=== PATIENT | female | born 1975 | race Caucasian/White ===

== ENCOUNTER 2018-03-24 13:49 | Emergency (ER) | payer SELFPAY ==
[2018-03-24] MEDS ORDERED: NACL 0.9% 1000 ML 1,000 ML ONE (13:56)
[2018-03-24] MEDS ORDERED: ZOFRAN IV ONE ×2 (14:08→16:12)
[2018-03-24] MEDS ORDERED: NACL 0.9% 1000 ML 1,000 ML IV ONE ×3 (14:08→17:08)
[2018-03-24] MEDS ORDERED: ZOFRAN ONE (14:09)
--- NOTE | 2018-03-24 14:37 | Emergency Department Report ---
HPI - General Chief Complaint: Syncope Time Seen by Provider: 03/24/18 14:05 - HPI HPI: 42-year-old [place] female presents to the emergency department with complaint of passing out just after donating blood/plasma. She remembers being at the donation clinic and someone was driving her to go see her son and then she remembers coming to at the emergency department. She presents with some borderline low blood pressure. She has a past medical history of asthma and anxiety. She denies any headache, vision change, slurred speech, chest pain or fever. Currently she says she is feeling much better. ED Past Medical Hx - Past Medical History Hx Asthma: Yes Additional medical history: anxiety - Surgical History Past Surgical History?: No - Social History Smoking Status: Never Smoker Substance Use Type: None - Medications Home Medications: Home Medications Medication Instructions Recorded Confirmed Last Taken Type ALBUTEROL Inhaler (OR & NICU) 03/24/18 Unknown History [ProAir HFA Inhaler] Depo-Medrol 03/24/18 Unknown History ED Review of Systems ROS: Stated complaint: SNYCOPE Other details as noted in HPI Comment: All other systems reviewed and negative Constitutional: denies: chills, fever Eyes: denies: eye pain, eye discharge, vision change ENT: denies: ear pain, throat pain Respiratory: denies: cough, shortness of breath, wheezing Cardiovascular: syncope. denies: chest pain Gastrointestinal: denies: abdominal pain, nausea, diarrhea Genitourinary: denies: urgency, dysuria, discharge Musculoskeletal: denies: back pain, joint swelling, arthralgia Skin: denies: rash, lesions Neurological: denies: headache, weakness, paresthesias Physical Exam - Physical Exam Vital Signs: Vital Signs 03/24/18 03/24/18 13:56 14:02 Temperature 97.8 F Pulse Rate 75 Respiratory 20 16 Rate Blood Pressure 90/67 O2 Sat by Pulse 96 97 Oximetry Physical Exam: GENERAL: The patient is well-developed well-nourished. HENT: Normocephalic. Atraumatic. Patient has moist mucous membranes. EYES: Extraocular motions are intact. Pupils equal reactive to light bilaterally. NECK: Supple. Trachea is midline. CHEST/LUNGS: Clear to auscultation. There is no respiratory distress noted. HEART/CARDIOVASCULAR: Regular. There is no tachycardia. There is no murmur. ABDOMEN: Abdomen is soft, nontender. Patient has normal bowel sounds. There is no abdominal distention. SKIN: Skin is warm and dry. NEURO: The patient is awake, alert, and oriented. The patient is cooperative. The patient has no focal neurologic deficits. The patient has normal speech and gait. Cranial last 2 through 12 grossly intact. No pronator drift. No dysmetria. MUSCULOSKELETAL: There is no tenderness or deformity. There is no limitation range of motion. There is no evidence of acute injury. ED Course Vital Signs 03/24/18 03/24/18 13:56 14:02 Temperature 97.8 F Pulse Rate 75 Respiratory 20 16 Rate Blood Pressure 90/67 O2 Sat by Pulse 96 97 Oximetry ED Medical Decision Making - Lab Data Result diagrams: 03/24/18 14:28 03/24/18 14:28 - EKG Data -: EKG Interpreted by [place] EKG shows normal: sinus rhythm, axis, intervals, QRS complexes, ST-T waves Rate: normal - EKG Data When compared to previous EKG there are: previous EKG unavailable Interpretation: normal EKG - Medical Decision Making Patient had a syncopal episode after donating blood and/or plasma earlier today. She presented with some borderline hypotension. She has no focal, motor or sensory deficits in her cranial nerves are intact. EKG did not show any signs of ST elevation [place], ischemia or dysrhythmia. Labs of a mostly unremarkable or these do not show any etiology of her symptoms. The patient received a total of 3 L of IV fluid resuscitation and her blood pressure has normalized. The patient has been reevaluated multiple times over multiple hours and has remained awake, alert, oriented and no further syncopal episodes or change in status. The patient has been instructed to avoid any further blood or plasma donation until follow-up with a primary care physician. She has been given multiple primary care physician referrals within the area. She will return to the ER with any worsening of her symptoms or any acute distress. - Differential Diagnosis vasovagal, orthostatic hypotension, hypokalemia, dysrhythmia Critical Care Time: No Critical care attestation.: If time is entered above; I have spent that time in minutes in the direct care of this critically ill patient, excluding procedure time. ED Disposition Clinical Impression: Syncope Qualifiers: Syncope type: unspecified Qualified Code(s): R55 - Syncope and collapse Disposition: DC-01 TO HOME OR SELFCARE Is pt being admited?: No Condition: Stable Instructions: Syncope (ED) Additional Instructions: Please follow up with a primary care physician in the next few days. Return to the emergency Department with any worsening of your symptoms or any acute distress. Referrals: PRIMARY CAREMD [Primary Care Provider] - 3-5 Days ALONDRA DOVE MD [Staff Physician] - 3-5 Days DANIEL EDMONDSON MD [Staff Physician] - 3-5 Days RACHELLE DORANTES MD [Staff Physician] - 3-5 Days Time of Disposition: 19:37
[2018-03-24 15:05] LABS: Basophils # (Auto) 0.1 K/mm3 (0.0-0.1); Basophils % (Auto) 0.9 % (0.0-1.8); Eosinophils # (Auto) 0.1 K/mm3 (0.0-0.4); Eosinophils % (Auto) 1.3 % (0.0-4.3); Hematocrit 43.8 % (30.3-42.9); Hemoglobin 14.6 gm/dl (10.1-14.3); Lymphocytes % (Auto) 10.7 % (13.4-35.0); Mean Corpuscular HGB Conc 34 % (30-34); Mean Corpuscular Hemoglobin 29 pg (28-32); Mean Corpuscular Volume 87 fl (79-97); Monocytes # (Auto) 0.6 K/mm3 (0.0-0.8); Monocytes % (Auto) 5.9 % (0.0-7.3); Platelet Count 214 K/mm3 (140-440); Red Blood Count 5.03 M/mm3 (3.65-5.03); Red Cell Distribution Width 14.6 % (13.2-15.2)
[2018-03-24 15:19] LABS: BUN/Creatinine Ratio 16; Blood Urea Nitrogen 8 mg/dL (7-17); Calcium 7.6 mg/dL (8.4-10.2); Hemolysis Index 28
[2018-03-24] MEDS ORDERED: TYLENOL PO ONE (20:06)
[2018-03-24 20:17] VITALS: BP 108/65
== END 2018-03-24 20:20 | disposition home or self-care (01) ==
LOC: ED 13:49
DX: R55 Syncope and collapse (principal); R03.1 Nonspecific low blood-pressure reading; J45.909 Unspecified asthma, uncomplicated; F41.9 Anxiety disorder, unspecified
CPT/HCPCS: 36415; 80048; 84443; 84484; 84703; 85025; 93005; 93010; 96361; 96374; 96376; 99284; J2405; J7030

== ENCOUNTER 2018-12-05 18:15 | Emergency (ER) | payer SELFPAY ==
--- NOTE | 2018-12-05 18:27 | Emergency Department Report ---
Blank Doc - Documentation Documentation: 43 y/o female with PMH of anxiety and asthma presents to ED reporting 3 day h istory of recuurent dizzy spells lasting for few minutes having 3-4 random spells daily. Spells associated with bouts of sob and headaches. No chest pain. No abdominal Nausea is off and on. Plan EKG and Labs
[2018-12-05 19:03] LABS: Basophils # (Auto) 0.1 K/mm3 (0.0-0.1); Basophils % (Auto) 0.8 % (0.0-1.8); Eosinophils # (Auto) 0.3 K/mm3 (0.0-0.4); Eosinophils % (Auto) 2.5 % (0.0-4.3); Hemoglobin 13.5 gm/dl (10.1-14.3); Lymphocytes # (Auto) 1.7 K/mm3 (1.2-5.4); Lymphocytes % (Auto) 16.5 % (13.4-35.0); Mean Corpuscular HGB Conc 34 % (30-34); Mean Corpuscular Volume 86 fl (79-97); Monocytes # (Auto) 0.6 K/mm3 (0.0-0.8); Monocytes % (Auto) 5.5 % (0.0-7.3); Platelet Count 305 K/mm3 (140-440); Red Blood Count 4.68 M/mm3 (3.65-5.03); Red Cell Distribution Width 14.1 % (13.2-15.2)
[2018-12-05 19:27] LABS: Alanine Aminotransferase 15 units/L (7-56); Albumin 4.1 g/dL (3.9-5); BUN/Creatinine Ratio 17; Blood Urea Nitrogen 10 mg/dL (7-17); Calcium 9.2 mg/dL (8.4-10.2); Hemolysis Index 8
--- NOTE | 2018-12-05 20:23 | Emergency Department Report ---
ED General Adult HPI - General Chief complaint: Anxiety Stated complaint: PANIC ATTACK Time Seen by Provider: 12/05/18 18:24 Source: patient Mode of arrival: Wheelchair Limitations: No Limitations - History of Present Illness Initial comments: 43 y/o female with PMH of anxiety and asthma presents to ED reporting 3 day history of recuurent dizzy spells lasting for few minutes having 3-4 random spells daily. Spells associated with bouts of sob and headaches. No chest pain. No abdominal Nausea is off and on. Onset/Timin -: days(s) Location: chest Radiation: non-radiation Severity scale (0 -10): 3 Quality: other (palpitations tightness ) Consistency: intermittent Improves with: rest Worsens with: other (stress ) Associated Symptoms: chest pain, nausea/vomiting, other (anxiety ) Treatments Prior to Arrival: none - Related Data Home Medications Medication Instructions Recorded Confirmed Last Taken ALBUTEROL Inhaler (OR & NICU) 03/24/18 Unknown [ProAir HFA Inhaler] Depo-Medrol 03/24/18 Unknown Previous Rx's Medication Instructions Recorded Last Taken Type Ibuprofen [Motrin 800 MG tab] 800 mg PO Q8HR PRN #30 tablet 12/05/18 Unknown Rx Allergies Allergy/AdvReac Type Severity Reaction Status Date / Time No Known Allergies Allergy Verified 12/05/18 18:16 ED Review of Systems ROS: Stated complaint: PANIC ATTACK Other details as noted in HPI Constitutional: denies: chills, fever Eyes: denies: eye pain, eye discharge, vision change ENT: denies: ear pain, throat pain Respiratory: shortness of breath. denies: cough, wheezing Cardiovascular: chest pain, palpitations. denies: edema, syncope, paroxysmal nocturnal dyspnea Endocrine: no symptoms reported Gastrointestinal: denies: abdominal pain, nausea, vomiting, diarrhea, constipation, melena Genitourinary: denies: urgency, dysuria, discharge Musculoskeletal: denies: back pain, joint swelling, arthralgia Skin: denies: rash, lesions Neurological: headache. denies: weakness, numbness, paresthesias, confusion, abnormal gait, vertigo Psychiatric: anxiety. denies: depression Hematological/Lymphatic: denies: easy bleeding, easy bruising ED Past Medical Hx - Past Medical History Hx Asthma: Yes Additional medical history: anxiety PANIC ATTACKS - Social History Smoking Status: Never Smoker Substance Use Type: None - Medications Home Medications: Home Medications Medication Instructions Recorded Confirmed Last Taken Type ALBUTEROL Inhaler (OR & NICU) 03/24/18 Unknown History [ProAir HFA Inhaler] Depo-Medrol 03/24/18 Unknown History Ibuprofen [Motrin 800 MG tab] 800 mg PO Q8HR PRN #30 tablet 12/05/18 Unknown Rx ED Physical Exam - General Limitations: No Limitations General appearance: alert, in no apparent distress - Head Head exam: Present: atraumatic, normocephalic - Eye Eye exam: Present: normal appearance, PERRL, EOMI. Absent: conjunctival injection, nystagmus Pupils: Present: normal accommodation - ENT ENT exam: Present: normal exam, normal orophraynx, mucous membranes moist, normal external ear exam - Neck Neck exam: Present: normal inspection, full ROM, lymphadenopathy - Respiratory Respiratory exam: Present: normal lung sounds bilaterally. Absent: respiratory distress, wheezes, stridor, chest wall tenderness - Cardiovascular Cardiovascular Exam: Present: regular rate, normal rhythm, normal heart sounds. Absent: systolic murmur, diastolic murmur, rubs, gallop - GI/Abdominal GI/Abdominal exam: Present: soft, normal bowel sounds. Absent: distended, tenderness, guarding, rebound, rigid, bruit, hernia - Rectal Rectal exam: Present: deferred - Extremities Exam Extremities exam: Present: normal inspection - Back Exam Back exam: Present: normal inspection, full ROM. Absent: tenderness, CVA tenderness (R), CVA tenderness (L), muscle spasm, rash noted - Neurological Exam Neurological exam: Present: alert, oriented X3, CN II-XII intact, normal gait, reflexes normal. Absent: motor sensory deficit - Expanded Neurological Exam Expanded Patient oriented to: Present: person, place, time Speech: Present: fluid speech Motor strength exam: RUE: 5, LUE: 5, RLE: 5, LLE: 5 Best Eye Response ([place]): (4) open spontaneously Best Motor Response ([place]): (6) obeys commands Best Verbal Response ([place]): (5) oriented [place] Total: 15 - Psychiatric Psychiatric exam: Present: anxious. Absent: agitated, homicidal ideation, suicidal ideation - Skin Skin exam: Present: warm, dry, intact, normal color. Absent: rash ED Course Vital Signs 12/05/18 18:28 Temperature 97.4 F L Pulse Rate 84 Respiratory 16 Rate Blood Pressure 135/84 O2 Sat by Pulse 100 Oximetry ED Medical Decision Making - Lab Data Result diagrams: 12/05/18 18:41 12/05/18 18:41 Labs 12/05/18 12/05/18 12/05/18 18:41 18:41 18:41 WBC 10.4 RBC 4.68 Hgb 13.5 Hct 40.0 MCV 86 MCH 29 MCHC 34 RDW 14.1 Plt Count 305 Lymph % (Auto) 16.5 Brooks % (Auto) 5.5 Eos % (Auto) 2.5 Baso % (Auto) 0.8 Lymph # 1.7 Brooks # 0.6 Eos # 0.3 Baso # 0.1 Seg Neutrophils % 74.7 H Seg Neutrophils # 7.8 H Sodium 138 Potassium 3.8 Chloride 101.9 Carbon Dioxide 23 Anion Gap 17 BUN 10 Creatinine 0.6 L Estimated GFR > 60 BUN/Creatinine Ratio 17 Glucose 143 H Calcium 9.2 Total Bilirubin 0.20 AST 16 ALT 15 Alkaline Phosphatase 66 Troponin T < 0.010 Total Protein 7.0 Albumin 4.1 Albumin/Globulin Ratio 1.4 Urine Color Urine Turbidity Urine pH Ur Specific [place] Urine Protein Urine Glucose (UA) Urine Ketones Urine Blood Urine Nitrite Urine Bilirubin Urine Urobilinogen Ur Leukocyte Esterase Urine WBC (Auto) Urine RBC (Auto) Urine Mucus Urine HCG, Qual 12/05/18 21:04 WBC RBC Hgb Hct MCV MCH MCHC RDW Plt Count Lymph % (Auto) Brooks % (Auto) Eos % (Auto) Baso % (Auto) Lymph # Brooks # Eos # Baso # Seg Neutrophils % Seg Neutrophils # Sodium Potassium Chloride Carbon Dioxide Anion Gap BUN Creatinine Estimated GFR BUN/Creatinine Ratio Glucose Calcium Total Bilirubin AST ALT Alkaline Phosphatase Troponin T Total Protein Albumin Albumin/Globulin Ratio Urine Color Yellow Urine Turbidity Clear Urine pH 7.0 Ur Specific [place] 1.025 Urine Protein <15 mg/dl Urine Glucose (UA) Neg Urine Ketones Neg Urine Blood Neg Urine Nitrite Neg Urine Bilirubin Neg Urine Urobilinogen < 2.0 Ur Leukocyte Esterase Neg Urine WBC (Auto) < 1.0 Urine RBC (Auto) 1.0 Urine Mucus 1+ Urine HCG, Qual Negative - EKG Data EKG shows normal: sinus rhythm, axis, intervals, QRS complexes, ST-T waves Rate: normal - EKG Data When compared to previous EKG there are: previous EKG unavailable Interpretation: normal EKG (EKG interp by ED attending ) - Radiology Data Radiology results: image reviewed no infiltratrates no opacities - Medical Decision Making CXR: no infiltrates no opacities , ekg: NSR no ST Elevated NE, pt denies cp at this time heart score is 0 , CYNDEE score is 0, labs normal, ua; normal , hcg: neg, plan : ibuprofen prn pain, follow up with pcp in 2-3 days pt given referral to pcp and Psych there is no HI no SI at this time pt dc'd to home in stable condition. Critical care attestation.: If time is entered above; I have spent that time in minutes in the direct care of this critically ill patient, excluding procedure time. ED Disposition Clinical Impression: Stress at home Chest pain Qualifiers: Chest pain type: unspecified Qualified Code(s): R07.9 - Chest pain, unspecified Disposition: DC-01 TO HOME OR SELFCARE Is pt being admited?: No Does the pt Need Aspirin: No Condition: Stable Instructions: Chest Pain (ED), Stress (ED) Prescriptions: Ibuprofen [Motrin 800 MG tab] 800 mg PO Q8HR PRN #30 tablet PRN Reason: pain Referrals: [facility] [Outside] - 3-5 Days [facility] [Outside] - 3-5 Days Forms: Work/School Release Form(ED) Time of Disposition: 23:27
[2018-12-05 21:39] LABS: Bilirubin,Urine NEG (Negative); Blood,Urine NEG (Negative); Color,Urine Yellow (Yellow); Mucus,Urine 1+ /HPF; Protein,Urine <15 mg/dL mg/dL (Negative); Urobilinogen,Urine < 2.0 mg/dL (<2.0); WBC,Urine < 1.0 /HPF (0.0-6.0)
[2018-12-05 21:46] LABS: HCG Qualitative,Urine Negative (Negative)
--- NOTE | 2018-12-05 23:29 | XRay Report ---
PROCEDURE: XR CHEST ROUTINE 2V TECHNIQUE: PA and lateral chest radiographs were obtained. HISTORY: Lightheadedness/Dizziness COMPARISONS: None. FINDINGS: Heart: Normal. Mediastinum/Vessels: Normal. Lungs/Pleural space: Normal. Bony thorax: No acute osseous abnormality. IMPRESSION: Normal examination. This document is electronically signed by Jonnathan Talbot MD., December 05 2018 11:28:01 PM ET
[2018-12-05 23:50] VITALS: BP 104/64
== END 2018-12-05 23:52 | disposition home or self-care (01) ==
LOC: ED 18:15
DX: Z63.8 Other specified problems related to primary support group (principal); R07.89 Other chest pain; J45.909 Unspecified asthma, uncomplicated; Z79.899 Other long term (current) drug therapy
CPT/HCPCS: 36415; 71046; 80053; 81001; 81025; 84484; 85025; 93005; 93010

== ENCOUNTER 2019-04-22 22:56 | Observation (INO) | payer OTHER ==
[2019-04-22 23:54] LABS: Basophils # (Auto) 0.1 K/mm3 (0.0-0.1); Basophils % (Auto) 1.1 % (0.0-1.8); Eosinophils # (Auto) 0.3 K/mm3 (0.0-0.4); Eosinophils % (Auto) 2.7 % (0.0-4.3); Hematocrit 40.5 % (30.3-42.9); Hemoglobin 13.8 gm/dl (10.1-14.3); Lymphocytes # (Auto) 1.9 K/mm3 (1.2-5.4); Lymphocytes % (Auto) 18.1 % (13.4-35.0); Mean Corpuscular HGB Conc 34 % (30-34); Mean Corpuscular Volume 82 fl (79-97); Monocytes # (Auto) 0.8 K/mm3 (0.0-0.8); Monocytes % (Auto) 7.3 % (0.0-7.3); Platelet Count 270 K/mm3 (140-440); Red Blood Count 4.91 M/mm3 (3.65-5.03); Red Cell Distribution Width 15.7 % (13.2-15.2)
[2019-04-23 00:09] LABS: BUN/Creatinine Ratio 26; Blood Urea Nitrogen 13 mg/dL (7-17); Calcium 9.3 mg/dL (8.4-10.2); Hemolysis Index 11
[2019-04-23] MEDS ORDERED: fentaNYL 100 MCG/2 ML INJ IV ONE (00:50)
[2019-04-23] MEDS ORDERED: ONDANSETRON 4 MG/2 ML INJ IV ONE (00:50)
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
[2019-04-23 02:00] LABS: Creatine Kinase MB 1.2 ng/mL (0.0-4.0)
--- NOTE | 2019-04-23 02:04 | Cat Scan Report ---
CT HEAD WITHOUT CONTRAST INDICATION: headache, syncope,n/v TECHNIQUE: All CT scans at this location are performed using CT dose reduction for ALARA by means of automated exposure control. COMPARISON: None available. FINDINGS: BRAIN: No hemorrhage or mass effect are seen. No evidence of acute infarction is noted. ORBITS: Normal as visualized. SOFT TISSUES OF HEAD: Normal. CALVARIUM: Normal. VISUALIZED PARANASAL SINUSES AND MASTOID AIR CELLS: Clear. ADDITIONAL FINDINGS: None. IMPRESSION: No acute intracranial abnormality. Signer Name: Valdo Patel MD Signed: 04/23/2019 2:00 AM Workstation Name: [id number]
[2019-04-23 02:07] LABS: Free T4 (Free Thyroxine) 0.98 ng/dL (0.76-1.46)
[2019-04-23] MEDS ORDERED: ASPIRIN 325 MG TAB PO ONE (02:16)
[2019-04-23] MEDS ORDERED: ACETAMINOPHEN 325 MG TAB PO PRN (03:06)
[2019-04-23] MEDS ORDERED: ALBUTEROL 2.5 MG/3 ML NEBU IH PRN (03:06)
[2019-04-23] MEDS ORDERED: POTASSIUM CHLORIDE ER 20 MEQ TAB PO ONE ×2 (03:08→03:21)
[2019-04-23] MEDS: HEPARIN 5,000 UNIT/1 ML VIAL SUB-Q SCH ×2 (03:25→10:00)
[2019-04-23] MEDS ORDERED: SODIUM CHLORIDE 0.9% 1000 ML 1,000 ML IV SCH (04:00)
[2019-04-23] MEDS ORDERED: ONDANSETRON 4 MG/2 ML INJ IV PRN (04:15)
[2019-04-23] MEDS ORDERED: METOCLOPRAMIDE 10 MG/2 ML INJ IV ONE (04:32)
[2019-04-23] MEDS ORDERED: ACETAMINOPHEN 650 MG RECT SUPP PR ONE ×2 (04:32→04:36)
[2019-04-23] MEDS ORDERED: METOCLOPRAMIDE 10 MG/2 ML INJ ONE (04:37)
--- NOTE | 2019-04-23 05:08 | History and Physical Report ---
CHIEF COMPLAINT: Syncopal attack. HISTORY OF PRESENT ILLNESS: The patient is a 43-year-old female who states she was at home and then started having headache and remembered that she got up to go to the bathroom and then started vomiting and called out to her fiance who came in and helped her and found that she had passed out. The patient also said that she noticed that the room was spinning and that she was having palpitation but denied history of chest pain. There was also a history of shortness of breath and then patient passed out. EMS was called and the patient had about 4 syncopal episode before finally being evaluated in the Emergency Room. The patient states she did not recall all the activities that happened and said that the last thing she remember was being in the Emergency Room. There was no history of fever or chills and no history of cough. The patient also gave a history of prolonged menstrual bleeding, which was heavy and coming out in clumps and still ongoing up till now. PAST MEDICAL HISTORY: Pertinent for anxiety and panic attack. Also, the patient has past history of asthma. PAST SURGICAL HISTORY: Unremarkable. FAMILY HISTORY: Noncontributory. SOCIAL HISTORY: The patient is a former cigarette smoker and quit smoking about 10 years ago. The patient does not drink alcohol and does not use illicit drug. MEDICATIONS: The patient is on albuterol inhaler 2.5 mg 3 times daily as needed for shortness of breath and ibuprofen 800 mg every 8 hours as needed for fever and headache. ALLERGIES: The patient does not have any known drug allergy. REVIEW OF SYSTEMS: CONSTITUTIONAL: There is no fever, no chills, no diaphoresis. HEENT: There is headache, but no sore throat. CARDIOVASCULAR SYSTEM: There is no chest pain or orthopnea. RESPIRATORY SYSTEM: Shortness of breath is present. No cough. GASTROINTESTINAL SYSTEM: Nausea and vomiting present. No abdominal pain, no diarrhea or constipation. NEUROLOGICAL SYSTEM: Dizziness is present and vertigo is present and also syncopal attack is noted and change in mental status noted. MUSCULOSKELETAL SYSTEM: There is no joint pain or swelling. DERMATOLOGICAL SYSTEM: There is no skin rash or itching. GENITOURINARY SYSTEM: There is no dysuria, hematuria or flank pain. Rest of system review is normal. PHYSICAL EXAMINATION: GENERAL: At the time of exam, the patient was found to be alert, oriented x 3 and not in acute distress. VITAL SIGNS: Shows temperature of 97.9 degrees Fahrenheit, pulse of 84, respirations 16, blood pressure 111/73, O2 sat of 97% on room air. HEENT: Show pupils to be equal, round, reactive to light and accommodating. Extraocular muscles are intact. NECK: Supple, with no JVD or carotid bruit. CARDIOVASCULAR SYSTEM: Showed normal first and second heart sounds, with no gallops or murmurs. RESPIRATORY SYSTEM: Showed good air entry on both sides of the lungs with no abnormal breath sounds. GASTROINTESTINAL SYSTEM: Show abdomen to be full, soft, nontender, with no organomegaly or rigidity. NEUROLOGIC: Shows no focal deficit. MUSCULOSKELETAL SYSTEM: Show no joint swelling or tenderness. DERMATOLOGICAL SYSTEM: Show no skin rash. GENITOURINARY SYSTEM: Showing no costovertebral angle tenderness. PERTINENT LABORATORY AND IMAGING STUDIES: The patient had CT of the head without contrast done that shows no acute intracranial abnormality. The patient's lab result shows CBC with normal white count, normal hemoglobin and normal hematocrit with CBC differential showing slight increase in segmented neutrophil count of 70.8%. The patient's D-dimer level was normal and the patient's chemistry shows low potassium level of 3.5 with rest of chemistry being unremarkable. The patient's test was negative. The patient's cardiac enzyme including troponin came back normal. DIAGNOSES: 1. Syncope. 2. Dizziness. 3. Excessive menstrual bleeding or menorrhagia. 4. Hypokalemia. PLAN OF CARE: 1. The patient will be placed on observation on telemetry. 2. The patient will have bilateral carotid Doppler done this morning as well as 2D echo done this morning. 3. The patient will have serial cardiac enzyme involving troponin, total CK, and CK-MB checked every 6 hours x 2 more levels. 4. The patient will have gynecological consult with Dr. Maik Zapata because of excessive menstrual bleeding. 5. The patient will be on IV normal saline running at 125 mL an hour. 6. The patient will be on heparin 5000 units subcutaneous q.12 hours for DVT prophylaxis. 7. The patient will have a dose of potassium chloride 40 mEq by mouth and will be on p.r.n. medications like Tylenol 650 mg by mouth every 4 hours for fever and headache and Zofran 4 mg IV every 8 hours as needed for nausea and vomiting. 8. The patient will be on her home medication as shown in the medication reconciliation section. JOB# [id number] OCN/NTS
[2019-04-23 06:52] LABS: Creatine Kinase MB 1.2 ng/mL (0.0-4.0)
[2019-04-23] MEDS ORDERED: MECLIZINE 25 MG TAB PO PRN (08:22)
--- NOTE | 2019-04-23 11:31 | Vascular Lab Report ---
"DUPLEX DOPPLER ULTRASOUND CAROTID, BILATERAL INDICATION / CLINICAL INFORMATION: SYNCOPE. COMPARISON: None available. FINDINGS: RIGHT CAROTID PLAQUE ESTIMATE: < 50% CCA velocity: 114 cm/sec. ICA peak systolic velocity: 108 cm/sec. ICA/CCA PSV Ratio: 0.9 Right Vertebral Artery: Antegrade flow. LEFT CAROTID PLAQUE ESTIMATE: < 50% CCA velocity: 108 cm/sec. ICA peak systolic velocity: 96 cm/sec. ICA/CCA PSV Ratio: 0.9 Left Vertebral Artery: Antegrade flow. IMPRESSION: 1. Right Internal Carotid Artery: Less than 50% diameter stenosis. 2. Left Internal Carotid Artery: Less than 50% diameter stenosis. Velocity criteria are extrapolated from diameter data as defined by the Society of Radiologists in Ul trasound Consensus Conference, Radiology 2003; 229;340-346. Degree of || ICA PSV || Plaque || ICA/CCA Stenosis (%) || (cm/sec) || estimate (%) || PSV Ratio Normal ............. || ...<125........... || ...None......... || ...<2.0 <50................... || ...<125........... || ......<50......... || ...<2.0 50-69................ || ..125-230...... || ......>50......... || 2.0-4.0 >70 but <100... || >230.............. || .......>50........ || ...>4.0 Near occlusion || High/low/none || ...visible....... || variable Total occlusion || ....None........... || ..no lumen... || ....N/A Signer Name: Kimmy Wesley MD Signed: 04/23/2019 11:26 AM Workstation Name: [id number]"
--- NOTE | 2019-04-23 11:40 | Ultrasound Report ---
US transvaginal INDICATION: Vaginal bleeding for 3 weeks. COMPARISON: None similar. FINDINGS: Transvaginal pelvic sonography performed in this patient with LMP of 03/25/2019 demonstrates a 9.6 x 4.6 x 4.5 cm homogenous, anteverted uterus. Endometrial stripe thickness 0.7 cm towards the fundus, image 7, though slightly heterogeneous with possible minimal fluid outlining a0.4 cm round ec hogenic presumed polyp as on image 31. Tiny nabothian cyst. No significant pelvic free fluid. Approximately 3.5 x 2.5 x 2.9 cm right ovary with a 3.1 cm intrinsic cyst, image 20. Left ovary unrem arkable at 2 x 1.5 x 2 cm. IMPRESSION: No acute pelvic sonographic abnormality with an approximately 0.4 cm polyp towards the fu ndal endometrium questioned as also a 3 cm right ovarian cyst, as described. Please correlate. Thank you for the opportunity to participate in this patient's care. Signer Name: Catherine Temple Signed: 04/23/2019 11:36 AM Workstation Name: [id number]
[2019-04-23] MEDS ORDERED: CYCLOBENZAPRINE 10 MG TAB PO PRN (13:00)
[2019-04-23] MEDS ORDERED: ACETAMINOPHEN 500 MG TAB PO PRN (13:03)
--- NOTE | 2019-04-23 13:26 | Consultation ---
History of Present Illness Reason for consult: other (heavy menses) History of present illness: 43yo G presents to ED with altered mental status, syncope. AFFILIATE MANAGER was consulted for prolonged menstrual cycle x 3 weeks. Hemoglobin 13. Transvaginal US demonstrates possible endometrial polyp. Medications and Allergies Allergies Allergy/AdvReac Type Severity Reaction Status Date / Time No Known Allergies Allergy Verified 04/23/19 03:17 Home Medications Medication Instructions Recorded Confirmed Last Taken Type Ibuprofen [Motrin 800 MG tab] 800 mg PO Q8HR PRN #30 tablet 12/05/18 04/23/19 Unknown Rx ALBUTEROL NEB's [Proventil 0.083% 2.5 mg IH TID PRN 04/23/19 04/23/19 Unknown History NEBS] Acetaminophen [Acetaminophen TAB] 500 mg PO Q8HR PRN #30 tablet 04/23/19 Unknown Rx Cyclobenzaprine [Flexeril 10 MG 5 mg PO Q8H PRN #90 tablet 04/23/19 Unknown Rx TAB] Meclizine [Antivert] 25 mg PO Q8H PRN #14 tablet 04/23/19 Unknown Rx SUMAtriptan succinate [SUMAtriptan 50 mg PO ONCE #2 tablet 04/23/19 Unknown Rx Succinate] Active Meds: Active Medications Acetaminophen (Tylenol) 500 mg PO Q8HR PRN PRN Reason: Pain, Mild (1-3) Albuterol (Proventil) 2.5 mg IH TID PRN PRN Reason: Wheezing Cyclobenzaprine HCl (Flexeril) 5 mg PO Q8H PRN PRN Reason: Muscle Spasm Heparin Sodium (Porcine) (Heparin) 5,000 unit SUB-Q Q12HR MARIA EUGENIA Last Admin: 04/23/19 10:00 Dose: 5,000 unit Documented by: Sodium Chloride (Nacl 0.9% 1000 Ml) 1,000 mls @ 125 mls/hr IV DIRECT MARIA EUGENIA Last Admin: 04/23/19 04:27 Dose: 125 mls/hr Documented by: Meclizine HCl (Antivert) 25 mg PO Q8H PRN PRN Reason: Vertigo Ondansetron HCl (Zofran) 4 mg IV Q8H PRN PRN Reason: Nausea And Vomiting - Vital Signs Vital signs: Vital Signs Temp Pulse Resp BP Pulse Ox 97.9 F 84 16 111/73 97 04/22/19 23:02 04/22/19 23:02 04/22/19 23:02 04/22/19 23:02 04/22/19 23:02 Temp Pulse Resp BP Pulse Ox 98.0 F 65 18 103/62 96 04/23/19 05:14 04/23/19 05:12 04/23/19 06:30 04/23/19 05:12 04/23/19 05:12 Results Result Diagrams: 04/22/19 23:20 04/22/19 23:20 Abnormal lab results 04/22/19 04/22/19 Range/Units 23:20 23:20 RDW 15.7 H (13.2-15.2) % Seg Neutrophils % 70.8 H (40.0-70.0) % Potassium 3.5 L (3.6-5.0) mmol/L Carbon Dioxide 20 L (22-30) mmol/L Creatinine 0.5 L (0.7-1.2) mg/dL Glucose 112 H (65-100) mg/dL All other labs normal. Assessment and Plan - Patient Problems (1) Irregular menstrual bleeding Status: Acute Plan to address problem: Recommend endometrial biopsy - in the outpatient setting. Patient should call Color Maker [facility] for appointment within 2 weeks. Ultrasound indicates possible endometrial polyp but endometrial carcinoma must be ruled out by endometrial sampling.
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
[2019-04-23 13:37] VITALS: BP 98/61
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
--- NOTE | 2019-04-23 17:03 | Magnetic Resonance Report ---
NONENHANCED MR SCAN OF THE BRAIN: INDICATION / CLINICAL INFORMATION: Seizure; vertigo; nausea and vomiting TECHNIQUE: Multiplanar, multisequence MR images of the brain were obtained. COMPARISON: CT scan obtained earlier today FINDINGS: BRAIN / INTRACRANIAL CONTENTS: No acute ischemia, acute hemorrhage, mass effect, midline shift, or hy drocephalus. Age, height convexity cortical sulci are slightly prominent. Temporal horn tips are nor mal.. No significant white matter abnormality. Given the history of seizures, high are normal bilaterally. In the FLAIR and T2-weighted images, I do not see MR findings to suggest focal cortical dysplasia or heterotopic tabor matter. CRANIOCERVICAL JUNCTION: No significant abnormality. VASCULAR FLOW-VOIDS: No significant abnormality. ORBITS: No significant abnormality of visualized orbits. SINUSES / MASTOIDS: Mucosal thickening is seen in the right posterior ethmoid air cell. ADDITIONAL FINDINGS: None. IMPRESSION: I do not see focal parenchymal lesion Signer Name: Wil Daniel MD Signed: 04/23/2019 4:58 PM Workstation Name: [id number]
== END 2019-04-23 16:50 | disposition home or self-care (01) ==
LOC: ED 22:56 → 3A 04-23 02:50 → EEVIPCON 04-23 02:50
PROVIDERS: ADMIT Internal Medicine; ATTEND Internal Medicine
DX: R55 Syncope and collapse (principal); R42 Dizziness and giddiness; N92.0 Excessive and frequent menstruation with regular cycle; E87.6 Hypokalemia; R00.2 Palpitations; R51 Headache; Z87.891 Personal history of nicotine dependence
CPT/HCPCS: 36415; 70450; 70551; 76830; 80048; 82550; 82553; 83735; 84439; 84443; 84484; 84703; 85025; 85379; 93005; 93010; 93306; 93880; 96361; 96372; 96374; 96375; 96376; G0378; J1644; J2405; J2765; J3010; J7030